=== PATIENT | male | born 1950 | race Hispanic/Latino ===

== ENCOUNTER 2021-04-06 07:53 | Day surgery (SDC) | payer OTHER ==
[2021-04-03 12:10] LABS: BASOPHILS % (AUTO) 1.1 % (0.0-5.0); EOSINOPHILS % (AUTO) 3.2 % (0.0-8.0); HEMATOCRIT 42.3 % (42-54); LYMPHOCYTES % (AUTO) 30.2 % (21.0-51.0); MEAN CORPUSCULAR HGB CONC 33.6 g/dL (32.0-36.0); MEAN CORPUSCULAR VOLUME 92.4 fL (79-99); MONOCYTES % (AUTO) 12.4 % (3.0-13.0); NEUTROPHILS % (AUTO) 52.8 % (40.0-77.0); PLATELET COUNT (AUTO) 194 K/uL (130-400); RED BLOOD CELL COUNT(AUTO) 4.58 MIL/uL (4.50-6.20); WHITE BLOOD COUNT (AUTO) 6.3 K/uL (4.8-10.8)
[2021-04-03 12:18] LABS: CREATININE 1.1 mg/dL (0.5-1.5); POTASSIUM 4.5 mmol/L (3.5-5.1)
[2021-04-05 13:50] VITALS: BP 128/73
[2021-04-06] VITALS (12 sets, daily range): BP systolic 116–157; BP diastolic 69–94
[~2021-04-06] VITALS: Ht 190.5 cm; Wt 106.5 kg
[~2021-04-06 07:53] MED LIST: AMLO-257 PO; AMOX-429 PO; CLON0.1T PO; DIPH25 PO; IRBE300T18 PO; LANS15CA17 PO; PRIMATENE PO; S-AD200T6 PO
[2021-04-06] MEDS ORDERED: LACTATED RINGERS 1000ML 1,000 ML IV ONE (08:19)
[2021-04-06] MEDS: CEFTRIAXONE 1G VIAL IVP SCH ×2 (08:30→10:05)
[2021-04-06] MEDS ORDERED: DEXAMETHASONE SOD PHOSPHATE 10MG/ML 1ML VIAL ONE (09:07)
[2021-04-06] MEDS ORDERED: MIDAZOLAM HCL 1 MG/ML 2ML VIAL ONE (09:07)
[2021-04-06] MEDS ORDERED: LIDOCAINE PF 100MG/5ML (2%) SYRINGE 5ML ONE (09:07)
[2021-04-06] MEDS ORDERED: FENTANYL CITRATE PF 50 MCG/1 ML 2ML VIAL ONE (09:07)
[2021-04-06] MEDS ORDERED: ONDANSETRON 4MG INJ ONE (09:07)
[2021-04-06] MEDS ORDERED: PROPOFOL 10 MG/ML 20ML VIAL IV ONE (09:07)
[2021-04-06] MEDS ORDERED: SUCCINYLCHOLINE 200MG/10ML SYR ONE (09:07)
[2021-04-06] MEDS ORDERED: MEPERIDINE-PF 25 MG/ML SYG ONE (09:08)
[2021-04-06] MEDS ORDERED: LIDOCAINE HCL 2% PF 20 ML JEL DISP.SYRIN MM ONE (10:10)
== END 2021-04-06 11:30 | disposition home or self-care (01) ==
LOC: DAH 07:53
PROVIDERS: ATTEND Urology
DX: C61 Malignant neoplasm of prostate (principal); Z20.822 Contact with and (suspected) exposure to COVID-19; R97.20 Elevated prostate specific antigen [PSA]; I10 Essential (primary) hypertension; K21.9 Gastro-esophageal reflux disease without esophagitis; G47.00 Insomnia, unspecified; J45.909 Unspecified asthma, uncomplicated; Z80.3 Family history of malignant neoplasm of breast; Z80.42 Family history of malignant neoplasm of prostate; Z98.890 Other specified postprocedural states
CPT/HCPCS: 36415; 52648; 76872; 80048; 85025; 87635; 88305; 93005; A4215 ×2; A4221; A4222; A4223; A4510; A4600; A4663; A6260; C9803; J0330; J0696; J1100; J2001; J2175; J2250; J2405; J2704; J3010; J7120